=== PATIENT | male | born 1960 | race Caucasian/White ===

== ENCOUNTER → 2020-11-12 | Outpatient (CLI) | payer OTHER | LOC: HEART 5 10-29 11:30 | DX: R00.1 Bradycardia, unspecified (principal) | CPT/HCPCS: 94060; 94729 ==

== ENCOUNTER → 2021-04-07 | Outpatient (CLI) | payer OTHER | LOC: EXRD 13:17 | DX: M54.50 Low back pain, unspecified (principal); M47.816 Spondylosis without myelopathy or radiculopathy, lumbar region | CPT/HCPCS: 72100 ==

== ENCOUNTER → 2021-06-10 | Day surgery (SDC) | payer OTHER ==
[~2021-06-10] MED LIST: LIPITOR40 MG PO; MOBIC15 MG PO; NITROSTAT 0.40.4 MG SL; PEPCID20 MG PO; PLAVIX 75 MG TA75 MG PO; PROAIR HFA8.5 GM INH; PROTONIX 40 MG40 M1 PO; ZESTRIL5 MG PO
== END | disposition home or self-care (01) ==
LOC: OR 06:24
DX: K29.50 Unspecified chronic gastritis without bleeding (principal); K21.00 Gastro-esophageal reflux disease with esophagitis, without bleeding; K22.10 Ulcer of esophagus without bleeding; K26.3 Acute duodenal ulcer without hemorrhage or perforation; I10 Essential (primary) hypertension; I73.9 Peripheral vascular disease, unspecified; K21.9 Gastro-esophageal reflux disease without esophagitis; J44.9 Chronic obstructive pulmonary disease, unspecified; F17.210 Nicotine dependence, cigarettes, uncomplicated; Z20.822 Contact with and (suspected) exposure to COVID-19; G89.29 Other chronic pain; M54.50 Low back pain, unspecified; K44.9 Diaphragmatic hernia without obstruction or gangrene; K29.80 Duodenitis without bleeding
CPT/HCPCS: J2704; J7040

== ENCOUNTER → 2021-06-23 | Outpatient (CLI) | payer OTHER | LOC: EMI 16:21 | DX: M54.50 Low back pain, unspecified (principal); M47.816 Spondylosis without myelopathy or radiculopathy, lumbar region | CPT/HCPCS: 72148 ==

== ENCOUNTER → 2021-08-05 | Outpatient (CLI) | payer OTHER | LOC: KOH-I 11:03 | DX: F17.210 Nicotine dependence, cigarettes, uncomplicated (principal); R91.8 Other nonspecific abnormal finding of lung field | CPT/HCPCS: 71271 ==

== ENCOUNTER → 2022-01-13 | Outpatient (CLI) | payer OTHER | LOC: HEART 5 01-06 15:30 | DX: I73.9 Peripheral vascular disease, unspecified (principal) ==

== ENCOUNTER → 2022-02-26 | Outpatient (CLI) | payer OTHER | LOC: US 15:29 | DX: I70.213 Atherosclerosis of native arteries of extremities with intermittent claudication, bilateral legs (principal); Z95.820 Peripheral vascular angioplasty status with implants and grafts | CPT/HCPCS: 93925 ==

== ENCOUNTER 2022-03-09 22:27 | Emergency (ER) | payer OTHER | END 2022-03-10 00:23 | disposition home or self-care (01) | LOC: ER1 22:27 | DX: L76.22 Postprocedural hemorrhage of skin and subcutaneous tissue following other procedure (principal) | CPT/HCPCS: 99282 ==